=== PATIENT | female | born 1980 | race Two or more races ===

== ENCOUNTER 2020-11-08 11:04 | Emergency (ER) | payer OTHER | END 2020-11-08 11:46 | disposition left against medical advice (07) | LOC: ER 11:04 | DX: Z53.21 Procedure and treatment not carried out due to patient leaving prior to being seen by health care provider (principal) ==

== ENCOUNTER 2023-07-11 03:26 | Emergency (ER) | payer MEDICAID, OTHER ==
[~2023-07-11] VITALS: Ht 165.1 cm; Wt 87.0 kg
[2023-07-11 03:30] VITALS: O2SAT 98
[2023-07-11 03:55] LABS: BASOPHILS % 0.6 % (0.0-2.0); EOSINOPHILS % 2.2 % (0.0-5.0); HEMOGLOBIN. 13.7 g/dL (12.0-16.0); LYMPHOCYTES % 26.7 % (20.0-50.0); MEAN CORPUSCULAR HEMOGLOBIN 27.4 pg (28.0-32.0); MEAN CORPUSCULAR HGB CONC 32.5 g/dL (31.0-37.0); MEAN CORPUSCULAR VOLUME 84.3 fL (81.0-99.0); MONOCYTES % 6.6 % (2.0-8.0); NEUTROPHILS % 63.9 % (40.0-76.0); PLATELET 338 x1000/uL (130-400); RED BLOOD CELL COUNT 4.98 mill/uL (4.2-5.4); RED CELL DISTRIBUTION WIDTH 14.6 % (11.6-14.6); WHITE BLOOD COUNT 7.1 x1000/uL (4.5-11.0)
[2023-07-11 04:08] LABS: CLARITY URINE CLEAR (CLEAR); COLOR URINE YELLOW (YELLOW); GLUCOSE URINE NEGATIVE (NEGATIVE); KETONES URINE 1+ (NEGATIVE); LEUKOCYTE ESTERASE URINE TRACE (NEGATIVE); NITRITE URINE NEGATIVE (NEGATIVE); OCCULT BLOOD URINE NEGATIVE (NEGATIVE); PH URINE 6.5 (4.5-8.0); PROTEIN URINE TRACE (NEGATIVE); SPECIFIC GRAVITY URINE 1.011 (1.005-1.030); UROBILINOGEN URINE 0.2 E.U./dL (0.2-1.0)
[2023-07-11 04:08] LABS: CHLORIDE 104 mEq/L (98-107); INDEX HEMOLYSI 1 (1-3); INDEX ICTERIC 1 (1-4); INDEX LIPEMIC 1 (1-3); POTASSIUM 3.2 mEq/L (3.5-5.1); SODIUM 134 mEq/L (136-145)
[2023-07-11 04:10] LABS: BACTERIA URINE NONE SEEN; RBC URINE 0-2 /hpf (0-2); SQUAMOUS EPITHELIAL CELL URINE 1+ /lpf (RARE/1+); YEAST URINE NONE SEEN
[2023-07-11 04:17] LABS: ALANINE AMINOTRANSFERASE 84 IU/L (13-61); ALBUMIN 3.9 g/dL (3.4-5.0); ASPARTATE AMINOTRANSFERASE 43 IU/L (15-37); BILIRUBIN TOTAL 0.4 mg/dL (0.1-1.0); CALCIUM 8.9 mg/dL (8.5-10.1); CARBON DIOXIDE 27 mEq/L (21-32); CREATININE 0.6 mg/dL (0.6-1.3); GLUCOSE 130 mg/dL (70-105); PROTEIN TOTAL 8.4 g/dL (6.0-8.3); TROPONIN I HIGH SENSITIVITY 4 ng/L (<54); UREA NITROGEN BLOOD 12 mg/dL (7-21)
[2023-07-11 04:54] LABS: WBC URINE 0-2 /hpf (0-2)
[2023-07-11] MEDS ORDERED: KETOROLAC 60MG/2ML VIAL IM STA (05:17)
[2023-07-11] MEDS ORDERED: FAMOTIDINE 20MG/2ML VIAL IV STA (05:17)
[2023-07-11] MEDS ORDERED: MAGNESIUM/ALUMINUM HYDROXIDE/SIMETHICONE 30ML UDC PO STA (05:17)
[2023-07-11] MEDS ORDERED: DICYCLOMINE 10 MG/5 ML ORAL SYR PO STA (05:17)
[2023-07-11] MEDS ORDERED: ONDANSETRON HCL 4MG/2ML INJ IV STA (05:17)
[2023-07-11] MEDS ORDERED: ONDA4TAB50 PO (07:21)
[2023-07-11] MEDS ORDERED: TOPUD PO (07:21)
[2023-07-11 09:07] VITALS: BP 133/71; PULSE 80; RESP 16; TEMP 97.1
== END 2023-07-11 09:00 | disposition home or self-care (01) ==
LOC: ER 03:26
DX: R10.84 Generalized abdominal pain (principal); I10 Essential (primary) hypertension; Z98.51 Tubal ligation status
CPT/HCPCS: 99285; 96374; 76705; 96375; 80053; 81003; 81025; 83690; 85025; 84484; 36415; 93005; 96372; J3490; J1885; J2405

== ENCOUNTER 2024-07-16 11:24 | Emergency (ER) | payer MEDICAID ==
[~2024-07-16] VITALS: Ht 165.1 cm; Wt 88.0 kg
[~2024-07-16 11:24] MED LIST: ONDA4TAB50 PO; TOPUD PO
[2024-07-16 11:31] VITALS: TEMP 98.3; O2SAT 100
[2024-07-16 12:00] LABS: BASOPHILS % 0.2 % (0.0-2.0); EOSINOPHILS % 0.3 % (0.0-5.0); HEMOGLOBIN. 12.2 g/dL (12.0-16.0); LYMPHOCYTES % 12.6 % (20.0-50.0); MEAN CORPUSCULAR HEMOGLOBIN 26.8 pg (28.0-32.0); MEAN CORPUSCULAR HGB CONC 32.9 g/dL (31.0-37.0); MEAN CORPUSCULAR VOLUME 81.3 fL (81.0-99.0); MEAN PLATELET VOLUME 8.8 fl (7.4-10.4); MONOCYTES % 3.8 % (2.0-8.0); NEUTROPHILS % 83.1 % (40.0-76.0); PLATELET 328 x1000/uL (130-400); RED BLOOD CELL COUNT 4.55 mill/uL (4.2-5.4); WHITE BLOOD COUNT 7.1 x1000/uL (4.5-11.0)
[2024-07-16 12:07] LABS: CHLORIDE 105 mEq/L (98-107); POTASSIUM 3.9 mEq/L (3.5-5.1); SODIUM 139 mEq/L (136-145)
[2024-07-16 12:08] LABS: CARBON DIOXIDE 26 mEq/L (21-32)
[2024-07-16 12:09] LABS: CALCIUM 9.6 mg/dL (8.7-10.4)
[2024-07-16 12:13] LABS: CREATININE 0.7 mg/dL (0.6-1.0); GLUCOSE 114 mg/dL (70-105)
[2024-07-16 12:14] LABS: UREA NITROGEN BLOOD 10 mg/dL (9-23)
[2024-07-16 12:15] LABS: ALANINE AMINOTRANSFERASE 39 IU/L (10-49); ALBUMIN 4.6 g/dL (3.2-4.8); ASPARTATE AMINOTRANSFERASE 31 IU/L (<34); HCG SCREEN NEGATIVE
[2024-07-16 12:16] LABS: BILIRUBIN DIRECT 0.1 mg/dL (<=3.0); BILIRUBIN TOTAL 0.5 mg/dL (0.1-1.0); PROTEIN TOTAL 7.7 g/dL (6.0-8.3)
[2024-07-16] MEDS: ONDANSETRON 4MG ODT PO STA (12:34)
[2024-07-16] MEDS: FAMOTIDINE 20MG TABLET PO ONE (12:34)
[2024-07-16] MEDS: DICYCLOMINE HCL 10MG CAPSULE PO SCH (12:34)
[2024-07-16] MEDS: MAGNESIUM/ALUMINUM HYDROXIDE/SIMETHICONE 30ML UDC PO STA (12:35)
[2024-07-16] MEDS: DICYCLOMINE 10 MG/5 ML ORAL SYR PO STA (12:35)
[2024-07-16] MEDS ORDERED: FAMO-135 MT (12:58)
[2024-07-16] MEDS ORDERED: ONDA4TAB11 PO (12:58)
[2024-07-16 13:29] VITALS: BP 159/79; PULSE 98; RESP 16; O2SAT 99
== END 2024-07-16 13:31 | disposition home or self-care (01) ==
LOC: ER 11:37
DX: K29.70 Gastritis, unspecified, without bleeding (principal); F41.9 Anxiety disorder, unspecified; F32.A Depression, unspecified; I10 Essential (primary) hypertension; Z98.51 Tubal ligation status; Z98.890 Other specified postprocedural states; Z87.442 Personal history of urinary calculi; Z79.899 Other long term (current) drug therapy
CPT/HCPCS: 99284; 80076; 80048; 84703; 83690; 85025; 36415; 93005; Q0162